=== PATIENT | male | born 1955 | race Caucasian/White ===

== ENCOUNTER 2019-04-15 08:13 | Inpatient (IN) | payer OTHER ==
[2019-04-15 09:19] LABS: ADD MAN DIFF? NO
[2019-04-15 09:22] LABS: BASOPHIL # 0.1 10^3/ul (0.0-0.1); BASOPHILS % 0.9 % (0.0-2.0); EOSINOPHILS # 0.2 10^3/ul (0.0-0.5); EOSINOPHILS % 1.9 % (0.0-7.0); HEMATOCRIT 42.7 % (42.0-52.0); LYMPHOCYTES # 1.5 10^3/ul (0.8-2.9); LYMPHOCYTES % 18.7 % (15.0-51.0); MEAN CORPUSCULAR HEMOGLOBIN 28.1 pg (29.0-33.0); MEAN CORPUSCULAR HGB CONC 32.8 g/dl (32.0-37.0); MEAN CORPUSCULAR VOLUME 85.7 fl (82.0-101.0); MEAN PLATELET VOLUME 9.6 fl (7.4-10.4); MONOCYTE # 0.6 10^3/ul (0.3-0.9); MONOCYTES % 7.6 % (0.0-11.0); NEUTROPHIL # 5.5 10^3/ul (1.6-7.5); NEUTROPHILS % 70.1 % (39.0-77.0); PLATELET COUNT 217 10^3/UL (140-415); RED BLOOD COUNT 4.98 10^6/ul (4.70-6.10); RED CELL DISTRIBUTION WIDTH 13.4 % (11.5-14.5)
[2019-04-15 09:22] LABS: WHITE BLOOD COUNT 7.9 10^3/ul (4.8-10.8)
[2019-04-15] MEDS: KETOROLAC 15 MG INJ IV (09:22)
[2019-04-15] MEDS: SOD CHLORIDE 0.9% 500 ML IV (09:22)
[2019-04-15] MEDS: PIPER-TAZO 3.375 GM IV (PMX) 100 ML IVPB (09:22)
[2019-04-15 09:40] LABS: ALANINE AMINOTRANSFERASE 30 IU/L (13-69); ALBUMIN 4.5 g/dl (3.3-4.9); ALKALINE PHOSPHATASE 75 IU/L (42-121); ANION GAP 12 (5-13); ASPARTATE AMINO TRANSFERASE 23 IU/L (15-46); BILIRUBIN,INDIRECT 0.4 mg/dl (0-1.1); BILIRUBIN,TOTAL 0.4 mg/dl (0.2-1.3); BLOOD UREA NITROGEN 36 mg/dl (7-20); CALCIUM 9.8 mg/dl (8.4-10.2); CARBON DIOXIDE 24 mmol/L (21-31); CHLORIDE 106 mmol/L (97-110); CREATININE 1.28 mg/dl (0.61-1.24); Estimated GFR 57 mL/min (>60); GLUCOSE 160 mg/dl (70-220); LIPASE 138 U/L (23-300); SODIUM 142 mmol/L (135-144); TOTAL PROTEIN 7.7 g/dl (6.1-8.1)
[2019-04-15 10:14] LABS: INR 1.89; PARTIAL THROMBOPLASTIN TIME 40.3 Sec (23.0-35.0); PROTIME 21.8 Sec (11.9-14.9); PT RATIO 1.7
[2019-04-15] MEDS: VANCOMYCIN 1 GM (PMX) 250 ML IVPB (10:30)
[2019-04-15] MEDS ORDERED: ONDANSETRON 4 MG INJ IV (16:30)
[2019-04-15] MEDS ORDERED: VANCOMYCIN IV PER PHARMACY XX (16:30)
[2019-04-15] MEDS ORDERED: DOCUSATE SODIUM 100 MG CAP PO (16:30)
[2019-04-15] MEDS ORDERED: NACL 0.9% 3 ML SYG IV (16:30)
[2019-04-15] MEDS ORDERED: ZOLPIDEM 5 MG TAB PO (16:30)
[2019-04-15] MEDS ORDERED: ACETAMINOPHEN 325 MG TAB PO (16:30)
[2019-04-15] MEDS ORDERED: PIPER-TAZO 3.375 GM IV (PMX) 100 ML IVPB (17:00)
[2019-04-15] MEDS: morphine 2 MG INJ IV (17:11)
[2019-04-15] MEDS: VANCOMYCIN 1 GM 250 ML IVPB (17:20)
[2019-04-15] MEDS: INSULIN ASPART [NOVOLOG] 3 ML PEN SC ×2 (18:05→20:21)
[2019-04-15] MEDS: RIVAROXABAN 20 MG TABLET PO (18:59)
[2019-04-15] MEDS: CEFTRIAXONE 1 GM/50 ML (PMX) 50 ML IVPB (20:06)
[2019-04-15] MEDS: SILVER SULFADIAZINE 1% 25 GM CR TOP (20:22)
[2019-04-15] MEDS: INSULIN GLARGINE [LANTus] (100 UNITS/ML) SYG SC (20:42)
[2019-04-15 21:45] LABS: C-REACTIVE PROTEIN 1.5 mg/dl (0.0-0.9)
[2019-04-15 22:10] LABS: PROCALCITONIN 0.07 ng/mL (0.00-0.10)
[2019-04-15 22:34] LABS: ERYTHROCYTE SEDIMENTATION RATE 32 mm/Hr (0-20)
[2019-04-16] MEDS: ACCU-CHEK XX (02:45)
[2019-04-16] MEDS: HYDROCHLOROTHIAZIDE 12.5 MG CAP PO (05:17)
[2019-04-16] MEDS: VANCOMYCIN 1 GM 250 ML IVPB ×2 (05:20→18:07)
[2019-04-16] MEDS: HYDROCODONE/APAP (5/325) TAB PO (05:30)
[2019-04-16] MEDS: morphine 2 MG INJ IV ×3 (05:35→22:14)
[2019-04-16 06:15] LABS: ADD MAN DIFF? NO
[2019-04-16 06:18] LABS: WHITE BLOOD COUNT 6.3 10^3/ul (4.8-10.8)
[2019-04-16 06:18] LABS: BASOPHIL # 0.1 10^3/ul (0.0-0.1); BASOPHILS % 0.8 % (0.0-2.0); EOSINOPHILS # 0.2 10^3/ul (0.0-0.5); EOSINOPHILS % 2.7 % (0.0-7.0); HEMATOCRIT 34.7 % (42.0-52.0); HEMOGLOBIN 11.3 g/dl (14.0-18.0); LYMPHOCYTES # 1.3 10^3/ul (0.8-2.9); LYMPHOCYTES % 20.8 % (15.0-51.0); MEAN CORPUSCULAR HEMOGLOBIN 28.5 pg (29.0-33.0); MEAN CORPUSCULAR HGB CONC 32.6 g/dl (32.0-37.0); MEAN CORPUSCULAR VOLUME 87.6 fl (82.0-101.0); MEAN PLATELET VOLUME 9.5 fl (7.4-10.4); MONOCYTE # 0.7 10^3/ul (0.3-0.9); MONOCYTES % 11.4 % (0.0-11.0); NEUTROPHILS % 63.3 % (39.0-77.0); PLATELET COUNT 173 10^3/UL (140-415); RED BLOOD COUNT 3.96 10^6/ul (4.70-6.10); RED CELL DISTRIBUTION WIDTH 13.2 % (11.5-14.5)
[2019-04-16 06:29] LABS: HEMOGLOBIN A1C 6.6 % (0-5.9)
[2019-04-16 06:41] LABS: ANION GAP 4 (5-13); BLOOD UREA NITROGEN 26 mg/dl (7-20); CALCIUM 8.6 mg/dl (8.4-10.2); CARBON DIOXIDE 26 mmol/L (21-31); CHLORIDE 111 mmol/L (97-110); CREATININE 1.12 mg/dl (0.61-1.24); Estimated GFR > 60 mL/min (>60); GLUCOSE 122 mg/dl (70-220); PHOSPHORUS 3.7 mg/dl (2.5-4.9); SODIUM 141 mmol/L (135-144)
[2019-04-16] MEDS: INSULIN ASPART [NOVOLOG] 3 ML PEN SC ×4 (07:50→20:43)
[2019-04-16] MEDS ORDERED: DAKINS 0.0125%(1/40) 473 ML SOLUTION TP (09:00)
[2019-04-16] MEDS: DAKINS 0.0125%(1/40) 473 ML SOLUTION TP (16:58)
[2019-04-16] MEDS: SILVER SULFADIAZINE 1% 25 GM CR TOP ×3 (16:58→20:44)
[2019-04-16] MEDS: CEFTRIAXONE 1 GM/50 ML (PMX) 50 ML IVPB (18:06)
[2019-04-16] MEDS: RIVAROXABAN 20 MG TABLET PO (18:07)
[2019-04-16] MEDS: INSULIN GLARGINE [LANTus] (100 UNITS/ML) SYG SC (20:42)
[2019-04-17] MEDS: ACCU-CHEK XX (02:12)
[2019-04-17 04:32] LABS: BLOOD UREA NITROGEN 23 mg/dl (7-20)
[2019-04-17 04:32] LABS: CREATININE 1.15 mg/dl (0.61-1.24)
[2019-04-17] MEDS: morphine 2 MG INJ IV ×3 (04:39→19:01)
[2019-04-17] MEDS: VANCOMYCIN 1 GM 250 ML IVPB ×2 (05:01→17:37)
[2019-04-17 05:13] LABS: VANCOMYCIN,TROUGH 12.1 ug/ml (10.0-20.0)
[2019-04-17] MEDS: HYDROCHLOROTHIAZIDE 12.5 MG CAP PO (06:00)
[2019-04-17] MEDS: INSULIN ASPART [NOVOLOG] 3 ML PEN SC ×4 (07:51→21:00)
[2019-04-17] MEDS: SILVER SULFADIAZINE 1% 25 GM CR TOP ×3 (07:55→21:15)
[2019-04-17] MEDS: DAKINS 0.0125%(1/40) 473 ML SOLUTION TP (07:56)
[2019-04-17] MEDS: RIVAROXABAN 20 MG TABLET PO (17:37)
[2019-04-17] MEDS: CEFTRIAXONE 1 GM/50 ML (PMX) 50 ML IVPB (17:37)
[2019-04-17] MEDS: INSULIN GLARGINE [LANTus] (100 UNITS/ML) SYG SC (19:59)
[2019-04-18] MEDS: ACCU-CHEK XX (02:00)
[2019-04-18] MEDS: VANCOMYCIN 1 GM 250 ML IVPB ×2 (05:30→17:24)
[2019-04-18] MEDS: HYDROCHLOROTHIAZIDE 12.5 MG CAP PO (05:37)
[2019-04-18] MEDS: morphine 2 MG INJ IV ×3 (05:37→21:40)
[2019-04-18] MEDS: INSULIN ASPART [NOVOLOG] 3 ML PEN SC ×4 (08:00→21:00)
[2019-04-18] MEDS: DAKINS 0.0125%(1/40) 473 ML SOLUTION TP (08:56)
[2019-04-18] MEDS: SILVER SULFADIAZINE 1% 25 GM CR TOP ×3 (08:56→21:44)
[2019-04-18 11:18] LABS: ADD MAN DIFF? NO
[2019-04-18 11:25] LABS: WHITE BLOOD COUNT 6.1 10^3/ul (4.8-10.8)
[2019-04-18 11:25] LABS: BASOPHIL # 0.1 10^3/ul (0.0-0.1); BASOPHILS % 1.3 % (0.0-2.0); EOSINOPHILS # 0.2 10^3/ul (0.0-0.5); EOSINOPHILS % 2.8 % (0.0-7.0); HEMATOCRIT 39.6 % (42.0-52.0); LYMPHOCYTES # 1.7 10^3/ul (0.8-2.9); LYMPHOCYTES % 28.2 % (15.0-51.0); MEAN CORPUSCULAR HEMOGLOBIN 28.4 pg (29.0-33.0); MEAN CORPUSCULAR HGB CONC 32.8 g/dl (32.0-37.0); MEAN CORPUSCULAR VOLUME 86.7 fl (82.0-101.0); MEAN PLATELET VOLUME 9.7 fl (7.4-10.4); MONOCYTE # 0.5 10^3/ul (0.3-0.9); MONOCYTES % 8.6 % (0.0-11.0); NEUTROPHIL # 3.5 10^3/ul (1.6-7.5); NEUTROPHILS % 57.9 % (39.0-77.0); PLATELET COUNT 204 10^3/UL (140-415); RED BLOOD COUNT 4.57 10^6/ul (4.70-6.10); RED CELL DISTRIBUTION WIDTH 13.3 % (11.5-14.5)
[2019-04-18 11:37] LABS: ANION GAP 8 (5-13); BLOOD UREA NITROGEN 24 mg/dl (7-20); CALCIUM 9.7 mg/dl (8.4-10.2); CARBON DIOXIDE 28 mmol/L (21-31); CHLORIDE 105 mmol/L (97-110); CREATININE 1.16 mg/dl (0.61-1.24); Estimated GFR > 60 mL/min (>60); GLUCOSE 138 mg/dl (70-220); POTASSIUM 3.9 mmol/L (3.5-5.1); SODIUM 141 mmol/L (135-144)
[2019-04-18] MEDS ORDERED: ERTAPENEM SODIUM 0.5 GM in SOD CHLORIDE 0.9% 100 ML IVPB (16:00)
[2019-04-18] MEDS: ERTAPENEM SODIUM 1 GM in SOD CHLORIDE 0.9% 100 ML IVPB (16:02)
[2019-04-18] MEDS: RIVAROXABAN 20 MG TABLET PO (17:25)
[2019-04-18] MEDS: INSULIN GLARGINE [LANTus] (100 UNITS/ML) SYG SC (20:22)
[2019-04-19] MEDS: ACCU-CHEK XX (02:00)
[2019-04-19] MEDS: HYDROCHLOROTHIAZIDE 12.5 MG CAP PO (05:25)
[2019-04-19] MEDS: VANCOMYCIN 1 GM 250 ML IVPB ×2 (05:54→17:29)
[2019-04-19] MEDS: morphine 2 MG INJ IV ×2 (06:58→18:26)
[2019-04-19] MEDS: INSULIN ASPART [NOVOLOG] 3 ML PEN SC ×4 (08:00→20:47)
[2019-04-19] MEDS: SILVER SULFADIAZINE 1% 25 GM CR TOP ×3 (09:00→20:52)
[2019-04-19] MEDS: DAKINS 0.0125%(1/40) 473 ML SOLUTION TP (09:00)
[2019-04-19] MEDS: ERTAPENEM SODIUM 1 GM in SOD CHLORIDE 0.9% 100 ML IVPB (15:57)
[2019-04-19] MEDS: RIVAROXABAN 20 MG TABLET PO (17:28)
[2019-04-19] MEDS: INSULIN GLARGINE [LANTus] (100 UNITS/ML) SYG SC (20:46)
[2019-04-20] MEDS: ACCU-CHEK XX (01:58)
[2019-04-20] MEDS: VANCOMYCIN 1 GM 250 ML IVPB ×2 (05:04→17:25)
[2019-04-20] MEDS: HYDROCHLOROTHIAZIDE 12.5 MG CAP PO (06:02)
[2019-04-20 06:12] LABS: ADD MAN DIFF? NO
[2019-04-20 06:18] LABS: BASOPHIL # 0.1 10^3/ul (0.0-0.1); EOSINOPHILS # 0.2 10^3/ul (0.0-0.5); EOSINOPHILS % 2.5 % (0.0-7.0); HEMATOCRIT 43.9 % (42.0-52.0); HEMOGLOBIN 14.5 g/dl (14.0-18.0); LYMPHOCYTES # 2.2 10^3/ul (0.8-2.9); LYMPHOCYTES % 27.3 % (15.0-51.0); MEAN CORPUSCULAR HEMOGLOBIN 28.6 pg (29.0-33.0); MEAN CORPUSCULAR VOLUME 86.6 fl (82.0-101.0); MEAN PLATELET VOLUME 9.7 fl (7.4-10.4); MONOCYTE # 0.7 10^3/ul (0.3-0.9); MONOCYTES % 8.6 % (0.0-11.0); NEUTROPHIL # 4.7 10^3/ul (1.6-7.5); NEUTROPHILS % 59.2 % (39.0-77.0); PLATELET COUNT 237 10^3/UL (140-415); RED BLOOD COUNT 5.07 10^6/ul (4.70-6.10); RED CELL DISTRIBUTION WIDTH 13.2 % (11.5-14.5)
[2019-04-20 06:18] LABS: WHITE BLOOD COUNT 7.9 10^3/ul (4.8-10.8)
[2019-04-20 07:51] LABS: ANION GAP 8 (5-13); BLOOD UREA NITROGEN 34 mg/dl (7-20); CALCIUM 9.9 mg/dl (8.4-10.2); CARBON DIOXIDE 25 mmol/L (21-31); CHLORIDE 108 mmol/L (97-110); CREATININE 1.19 mg/dl (0.61-1.24); Estimated GFR > 60 mL/min (>60); GLUCOSE 133 mg/dl (70-220); POTASSIUM 4.3 mmol/L (3.5-5.1); SODIUM 141 mmol/L (135-144)
[2019-04-20] MEDS: INSULIN ASPART [NOVOLOG] 3 ML PEN SC ×4 (08:00→20:44)
[2019-04-20] MEDS: morphine 2 MG INJ IV ×3 (08:25→20:37)
[2019-04-20] MEDS: SILVER SULFADIAZINE 1% 25 GM CR TOP ×3 (13:00→20:44)
[2019-04-20] MEDS: DAKINS 0.0125%(1/40) 473 ML SOLUTION TP (13:42)
[2019-04-20] MEDS: ERTAPENEM SODIUM 1 GM in SOD CHLORIDE 0.9% 100 ML IVPB (15:54)
[2019-04-20] MEDS: RIVAROXABAN 20 MG TABLET PO (17:24)
[2019-04-20] MEDS: INSULIN GLARGINE [LANTus] (100 UNITS/ML) SYG SC (20:44)
[2019-04-21] MEDS: ACCU-CHEK XX (02:00)
[2019-04-21] MEDS: VANCOMYCIN 1 GM 250 ML IVPB ×2 (04:33→17:00)
[2019-04-21 05:43] LABS: ADD MAN DIFF? NO
[2019-04-21 05:57] LABS: WHITE BLOOD COUNT 6.8 10^3/ul (4.8-10.8)
[2019-04-21 05:57] LABS: BASOPHIL # 0.1 10^3/ul (0.0-0.1); BASOPHILS % 1.3 % (0.0-2.0); EOSINOPHILS # 0.2 10^3/ul (0.0-0.5); EOSINOPHILS % 3.2 % (0.0-7.0); HEMATOCRIT 43.6 % (42.0-52.0); HEMOGLOBIN 14.3 g/dl (14.0-18.0); LYMPHOCYTES # 2.2 10^3/ul (0.8-2.9); LYMPHOCYTES % 32.9 % (15.0-51.0); MEAN CORPUSCULAR HEMOGLOBIN 28.5 pg (29.0-33.0); MEAN CORPUSCULAR HGB CONC 32.8 g/dl (32.0-37.0); MEAN CORPUSCULAR VOLUME 86.9 fl (82.0-101.0); MEAN PLATELET VOLUME 9.7 fl (7.4-10.4); MONOCYTE # 0.6 10^3/ul (0.3-0.9); NEUTROPHIL # 3.5 10^3/ul (1.6-7.5); PLATELET COUNT 213 10^3/UL (140-415); RED BLOOD COUNT 5.02 10^6/ul (4.70-6.10); RED CELL DISTRIBUTION WIDTH 13.3 % (11.5-14.5)
[2019-04-21] MEDS: HYDROCHLOROTHIAZIDE 12.5 MG CAP PO (06:02)
[2019-04-21 06:27] LABS: ANION GAP 9 (5-13); BLOOD UREA NITROGEN 33 mg/dl (7-20); CALCIUM 9.4 mg/dl (8.4-10.2); CARBON DIOXIDE 24 mmol/L (21-31); CHLORIDE 108 mmol/L (97-110); CREATININE 1.21 mg/dl (0.61-1.24); Estimated GFR > 60 mL/min (>60); GLUCOSE 128 mg/dl (70-220); SODIUM 141 mmol/L (135-144)
[2019-04-21] MEDS: INSULIN ASPART [NOVOLOG] 3 ML PEN SC ×3 (08:00→17:32)
[2019-04-21] MEDS: SILVER SULFADIAZINE 1% 25 GM CR TOP ×2 (09:00→13:00)
[2019-04-21] MEDS: DAKINS 0.0125%(1/40) 473 ML SOLUTION TP (09:00)
[2019-04-21] MEDS: morphine 2 MG INJ IV (12:46)
[2019-04-21] MEDS: ERTAPENEM SODIUM 1 GM in SOD CHLORIDE 0.9% 100 ML IVPB (15:59)
[2019-04-21] MEDS: RIVAROXABAN 20 MG TABLET PO (17:32)
== END 2019-04-21 18:27 | disposition home or self-care (01) | DRG 300 ==
LOC: E/R 08:13 → PP2 15:32
DX: I87.2 Venous insufficiency (chronic) (peripheral) (principal); L03.115 Cellulitis of right lower limb; E11.42 Type 2 diabetes mellitus with diabetic polyneuropathy; Z59.0 Homelessness; E66.9 Obesity, unspecified; Z68.32 Body mass index [BMI] 32.0-32.9, adult; I10 Essential (primary) hypertension; I89.0 Lymphedema, not elsewhere classified; Z86.718 Personal history of other venous thrombosis and embolism; Z79.01 Long term (current) use of anticoagulants; Z79.84 Long term (current) use of oral hypoglycemic drugs
CPT/HCPCS: 36415; 71045; 73590; 80048; 80053; 80202; 82565; 82962; 83036; 83690; 83735; 84100; 84145; 84520; 85025; 85610; 85651; 85730; 86140; 87070; 87081; 93971; 96365; 96375; 99285-25

== ENCOUNTER 2019-05-09 06:38 | Inpatient (IN) | payer OTHER ==
[2019-05-09] MEDS: ONDANSETRON 4 MG INJ IV ×2 (07:22→08:23)
[2019-05-09] MEDS: morphine 4 MG/ML VIAL IV (07:22)
[2019-05-09] MEDS: SOD CHLORIDE 0.9% 500 ML IV (07:23)
[2019-05-09 07:40] LABS: ADD MAN DIFF? NO
[2019-05-09] MEDS: PIPER-TAZO 3.375 GM IV (PMX) 100 ML IVPB ×2 (07:46→17:19)
[2019-05-09 07:47] LABS: BASOPHILS % 0.7 % (0.0-2.0); EOSINOPHILS # 0.2 10^3/ul (0.0-0.5); EOSINOPHILS % 2.8 % (0.0-7.0); HEMATOCRIT 38.9 % (42.0-52.0); HEMOGLOBIN 12.4 g/dl (14.0-18.0); LYMPHOCYTES # 1.5 10^3/ul (0.8-2.9); LYMPHOCYTES % 27.2 % (15.0-51.0); MEAN CORPUSCULAR HEMOGLOBIN 27.9 pg (29.0-33.0); MEAN CORPUSCULAR HGB CONC 31.9 g/dl (32.0-37.0); MEAN CORPUSCULAR VOLUME 87.4 fl (82.0-101.0); MEAN PLATELET VOLUME 9.1 fl (7.4-10.4); MONOCYTE # 0.6 10^3/ul (0.3-0.9); MONOCYTES % 10.8 % (0.0-11.0); NEUTROPHIL # 3.1 10^3/ul (1.6-7.5); NEUTROPHILS % 57.2 % (39.0-77.0); PLATELET COUNT 176 10^3/UL (140-415); RED BLOOD COUNT 4.45 10^6/ul (4.70-6.10); RED CELL DISTRIBUTION WIDTH 13.5 % (11.5-14.5)
[2019-05-09 07:47] LABS: WHITE BLOOD COUNT 5.4 10^3/ul (4.8-10.8)
[2019-05-09 08:01] LABS: ALANINE AMINOTRANSFERASE 23 IU/L (13-69); ALBUMIN 3.8 g/dl (3.3-4.9); ALBUMIN/GLOBULIN RATIO 1.18; ALKALINE PHOSPHATASE 64 IU/L (42-121); ANION GAP 7 (5-13); ASPARTATE AMINO TRANSFERASE 20 IU/L (15-46); BILIRUBIN,INDIRECT 0.4 mg/dl (0-1.1); BILIRUBIN,TOTAL 0.4 mg/dl (0.2-1.3); BLOOD UREA NITROGEN 22 mg/dl (7-20); CALCIUM 8.8 mg/dl (8.4-10.2); CARBON DIOXIDE 27 mmol/L (21-31); CHLORIDE 109 mmol/L (97-110); CREATININE 1.24 mg/dl (0.61-1.24); Estimated GFR 59 mL/min (>60); GLUCOSE 114 mg/dl (70-220); SODIUM 143 mmol/L (135-144)
[2019-05-09 08:03] LABS: INR 1.57; PARTIAL THROMBOPLASTIN TIME 36.4 Sec (23.0-35.0); PROTIME 18.9 Sec (11.9-14.9); PT RATIO 1.5
[2019-05-09 08:13] LABS: TROPONIN-I < 0.012 ng/ml (0.000-0.120)
[2019-05-09] MEDS: VANCOMYCIN 1 GM (PMX) 250 ML IVPB (08:23)
[2019-05-09] MEDS: HYDROmorphONE 1 MG/ML SYG IV (08:23)
[2019-05-09 09:19] LABS: ADD UMIC YES; UR ASCORBIC ACID NEGATIVE (NEGATIVE); UR BILIRUBIN (Dip) NEGATIVE (NEGATIVE); UR BLOOD (Dip) 1+ mg/dL (NEGATIVE); UR CLARITY CLEAR (CLEAR); UR COLOR YELLOW (YELLOW); UR GLUCOSE (Dip) NEGATIVE (NEGATIVE); UR KETONES (Dip) NEGATIVE (NEGATIVE); UR LEUKOCYTE ESTERASE (Dip) NEGATIVE Leu/ul (NEGATIVE); UR NITRITE (Dip) NEGATIVE (NEGATIVE); UR RBC 2 /HPF (0-5); UR SPECIFIC GRAVITY (Dip) 1.015 (1.003-1.030); UR TOTAL PROTEIN (Dip) NEGATIVE (NEGATIVE); UR UROBILINOGEN (Dip) NEGATIVE (NEGATIVE); UR WBC 0 /HPF (0-5)
[2019-05-09] MEDS ORDERED: ONDANSETRON 4 MG INJ IV ×2 (10:00→11:30)
[2019-05-09] MEDS ORDERED: ACETAMINOPHEN 325 MG TAB PO (10:00)
[2019-05-09] MEDS ORDERED: HYDROCODONE/APAP (5/325) TAB PO (11:30)
[2019-05-09] MEDS ORDERED: NACL 0.9% 3 ML SYG IV (11:30)
[2019-05-09] MEDS ORDERED: GLUCOSE GEL 15 GRAM TUBE PO ×2 (12:00)
[2019-05-09] MEDS ORDERED: GLUCOSE GEL 15 GRAM TUBE BUCCAL (12:00)
[2019-05-09] MEDS ORDERED: GLUCAGON 1 MG INJ IM (12:00)
[2019-05-09] MEDS ORDERED: DEXTROSE 50% 50 ML SYRINGE IV ×2 (12:00)
[2019-05-09] MEDS ORDERED: VANCOMYCIN IV PER PHARMACY XX (12:30)
[2019-05-09 13:25] LABS: IRON 45 ug/dl (35-150)
[2019-05-09 13:29] LABS: C-REACTIVE PROTEIN 1.6 mg/dl (0.0-0.9)
[2019-05-09] MEDS ORDERED: VANCOMYCIN 1 GM 250 ML IVPB (13:30)
[2019-05-09 13:32] LABS: AMPHETAMINE/METHAMPHETAMINE Negative (NEGATIVE); BARBITURATES Negative (NEGATIVE); BENZODIAZEPINES Negative (NEGATIVE); CANNABINOIDS Negative (NEGATIVE); COCAINE Negative (NEGATIVE); OPIATES Positive (NEGATIVE)
[2019-05-09 13:35] LABS: B-TYPE NATRIURETIC PEPTIDE 128 PG/ML (0-125)
[2019-05-09 13:35] LABS: % IRON SATURATION 14 % SAT (22-52); TOTAL IRON BINDING CAPACITY 313 ug/dl (241-421)
[2019-05-09 13:57] LABS: HEMOGLOBIN A1C 6.5 % (0-5.9)
[2019-05-09 14:01] LABS: FERRITIN 63.1 ng/ml (11.1-264.0)
[2019-05-09 14:02] LABS: ERYTHROCYTE SEDIMENTATION RATE 20 mm/Hr (0-20)
[2019-05-09] MEDS: VANCOMYCIN 1 GM 250 ML IVPB (14:24)
[2019-05-09] MEDS: RIVAROXABAN 20 MG TABLET PO (17:20)
[2019-05-09] MEDS: metFORMIN 500 MG TAB PO (17:20)
[2019-05-09] MEDS: INSULIN ASPART [NOVOLOG] 3 ML PEN SC ×2 (17:21→21:00)
[2019-05-10] MEDS: PIPER-TAZO 3.375 GM IV (PMX) 100 ML IVPB ×3 (00:24→12:56)
[2019-05-10] MEDS: VANCOMYCIN 1 GM 250 ML IVPB ×2 (01:26→16:42)
[2019-05-10 07:02] LABS: ADD MAN DIFF? NO
[2019-05-10 07:05] LABS: WHITE BLOOD COUNT 6.6 10^3/ul (4.8-10.8)
[2019-05-10 07:06] LABS: BASOPHILS % 0.5 % (0.0-2.0); EOSINOPHILS # 0.2 10^3/ul (0.0-0.5); EOSINOPHILS % 2.7 % (0.0-7.0); HEMATOCRIT 36.3 % (42.0-52.0); HEMOGLOBIN 11.5 g/dl (14.0-18.0); LYMPHOCYTES # 1.5 10^3/ul (0.8-2.9); LYMPHOCYTES % 23.2 % (15.0-51.0); MEAN CORPUSCULAR HEMOGLOBIN 28.5 pg (29.0-33.0); MEAN CORPUSCULAR HGB CONC 31.7 g/dl (32.0-37.0); MEAN CORPUSCULAR VOLUME 90.1 fl (82.0-101.0); MEAN PLATELET VOLUME 9.5 fl (7.4-10.4); MONOCYTE # 0.9 10^3/ul (0.3-0.9); MONOCYTES % 13.3 % (0.0-11.0); NEUTROPHIL # 3.9 10^3/ul (1.6-7.5); NEUTROPHILS % 59.5 % (39.0-77.0); PLATELET COUNT 184 10^3/UL (140-415); RED BLOOD COUNT 4.03 10^6/ul (4.70-6.10); RED CELL DISTRIBUTION WIDTH 13.5 % (11.5-14.5)
[2019-05-10 07:31] LABS: PHOSPHORUS 4.1 mg/dl (2.5-4.9)
[2019-05-10 07:31] LABS: CHOL/HDL RATIO 5.9 RATIO; CHOLESTEROL 166 mg/dl (100-200); HDL CHOLESTEROL 28 mg/dl (30-78); LDL CHOLESTEROL,CALCULATED 82 mg/dl; MAGNESIUM 2.1 mg/dl (1.7-2.5); TRIGLYCERIDES 280 mg/dl (0-149)
[2019-05-10 07:38] LABS: ALANINE AMINOTRANSFERASE 29 IU/L (13-69); ALBUMIN 3.3 g/dl (3.3-4.9); ALBUMIN/GLOBULIN RATIO 1.13; ALKALINE PHOSPHATASE 53 IU/L (42-121); ANION GAP 7 (5-13); ASPARTATE AMINO TRANSFERASE 17 IU/L (15-46); BILIRUBIN,INDIRECT 0.3 mg/dl (0-1.1); BILIRUBIN,TOTAL 0.3 mg/dl (0.2-1.3); BLOOD UREA NITROGEN 18 mg/dl (7-20); C-REACTIVE PROTEIN 1.6 mg/dl (0.0-0.9); CALCIUM 8.6 mg/dl (8.4-10.2); CARBON DIOXIDE 30 mmol/L (21-31); CHLORIDE 107 mmol/L (97-110); CREATININE 1.25 mg/dl (0.61-1.24); Estimated GFR 58 mL/min (>60); GLUCOSE 121 mg/dl (70-220); POTASSIUM 4.2 mmol/L (3.5-5.1); SODIUM 144 mmol/L (135-144); TOTAL PROTEIN 6.2 g/dl (6.1-8.1)
[2019-05-10] MEDS: INSULIN ASPART [NOVOLOG] 3 ML PEN SC ×4 (08:00→20:34)
[2019-05-10] MEDS: metFORMIN 500 MG TAB PO ×2 (08:06→17:47)
[2019-05-10] MEDS: HYDROCHLOROTHIAZIDE 12.5 MG CAP PO (08:07)
[2019-05-10 08:37] LABS: ERYTHROCYTE SEDIMENTATION RATE 20 mm/Hr (0-20)
[2019-05-10] MEDS ORDERED: ENOXAPARIN 40 MG/0.4 ML SYG SC (09:00)
[2019-05-10] MEDS: morphine 2 MG INJ IV ×3 (11:15→16:41)
[2019-05-10] MEDS: FLUOCINONIDE 0.05% 15 GM CR TOP ×2 (11:19→20:35)
[2019-05-10] MEDS: DAKINS 0.0125%(1/40) 473 ML SOLUTION TP ×2 (16:42→20:35)
[2019-05-10] MEDS: RIVAROXABAN 20 MG TABLET PO (17:46)
[2019-05-10] MEDS: CEFEPIME 1GM/50 ML (PMX) 50 ML IVPB (20:33)
[2019-05-10] MEDS: morphine 4 MG/ML VIAL IV (20:43)
[2019-05-11 01:38] LABS: VANCOMYCIN,TROUGH 11.9 ug/ml (10.0-20.0)
[2019-05-11] MEDS: VANCOMYCIN 1 GM 250 ML IVPB ×2 (02:03→14:05)
[2019-05-11] MEDS: morphine 4 MG/ML VIAL IV ×3 (06:00→21:44)
[2019-05-11 06:02] LABS: ADD MAN DIFF? NO
[2019-05-11 06:12] LABS: WHITE BLOOD COUNT 5.6 10^3/ul (4.8-10.8)
[2019-05-11 06:12] LABS: BASOPHILS % 0.7 % (0.0-2.0); EOSINOPHILS # 0.1 10^3/ul (0.0-0.5); EOSINOPHILS % 2.5 % (0.0-7.0); HEMATOCRIT 36.7 % (42.0-52.0); HEMOGLOBIN 11.7 g/dl (14.0-18.0); LYMPHOCYTES # 1.3 10^3/ul (0.8-2.9); MEAN CORPUSCULAR HEMOGLOBIN 28.4 pg (29.0-33.0); MEAN CORPUSCULAR HGB CONC 31.9 g/dl (32.0-37.0); MEAN CORPUSCULAR VOLUME 89.1 fl (82.0-101.0); MEAN PLATELET VOLUME 9.3 fl (7.4-10.4); MONOCYTE # 0.6 10^3/ul (0.3-0.9); MONOCYTES % 11.1 % (0.0-11.0); NEUTROPHIL # 3.5 10^3/ul (1.6-7.5); NEUTROPHILS % 61.8 % (39.0-77.0); PLATELET COUNT 173 10^3/UL (140-415); RED BLOOD COUNT 4.12 10^6/ul (4.70-6.10); RED CELL DISTRIBUTION WIDTH 13.3 % (11.5-14.5)
[2019-05-11] MEDS: DAKINS 0.0125%(1/40) 473 ML SOLUTION TP ×3 (06:14→21:00)
[2019-05-11] MEDS: FLUOCINONIDE 0.05% 15 GM CR TOP ×3 (06:15→21:00)
[2019-05-11 06:33] LABS: MAGNESIUM 1.9 mg/dl (1.7-2.5)
[2019-05-11 06:43] LABS: ANION GAP 4 (5-13); BLOOD UREA NITROGEN 17 mg/dl (7-20); CALCIUM 9.1 mg/dl (8.4-10.2); CARBON DIOXIDE 29 mmol/L (21-31); CHLORIDE 108 mmol/L (97-110); CREATININE 1.22 mg/dl (0.61-1.24); Estimated GFR 60 mL/min (>60); GLUCOSE 124 mg/dl (70-220); SODIUM 141 mmol/L (135-144)
[2019-05-11] MEDS: INSULIN ASPART [NOVOLOG] 3 ML PEN SC ×4 (08:00→21:00)
[2019-05-11] MEDS: metFORMIN 500 MG TAB PO ×2 (08:30→17:29)
[2019-05-11] MEDS: CEFEPIME 1GM/50 ML (PMX) 50 ML IVPB ×2 (08:32→21:44)
[2019-05-11] MEDS: HYDROCHLOROTHIAZIDE 12.5 MG CAP PO (08:33)
[2019-05-11] MEDS: RIVAROXABAN 20 MG TABLET PO (17:29)
[2019-05-12] MEDS: VANCOMYCIN 1 GM 250 ML IVPB (02:19)
[2019-05-12] MEDS: INSULIN ASPART [NOVOLOG] 3 ML PEN SC ×4 (08:00→20:07)
[2019-05-12] MEDS: FLUOCINONIDE 0.05% 15 GM CR TOP ×2 (09:00→20:08)
[2019-05-12] MEDS: DAKINS 0.0125%(1/40) 473 ML SOLUTION TP ×2 (09:00→20:08)
[2019-05-12] MEDS: CEFEPIME 1GM/50 ML (PMX) 50 ML IVPB (10:20)
[2019-05-12] MEDS: morphine 4 MG/ML VIAL IV ×2 (10:21→20:09)
[2019-05-12] MEDS: HYDROCHLOROTHIAZIDE 12.5 MG CAP PO (10:22)
[2019-05-12] MEDS: metFORMIN 500 MG TAB PO ×2 (10:29→17:19)
[2019-05-12] MEDS: RIVAROXABAN 20 MG TABLET PO (17:20)
[2019-05-12] MEDS: DOXYCYCLINE 100 MG TAB PO (20:07)
[2019-05-13] MEDS: morphine 4 MG/ML VIAL IV ×2 (05:24→19:41)
[2019-05-13 05:52] LABS: ADD MAN DIFF? NO
[2019-05-13 06:03] LABS: WHITE BLOOD COUNT 6.3 10^3/ul (4.8-10.8)
[2019-05-13 06:03] LABS: BASOPHIL # 0.1 10^3/ul (0.0-0.1); BASOPHILS % 0.8 % (0.0-2.0); EOSINOPHILS # 0.2 10^3/ul (0.0-0.5); EOSINOPHILS % 2.9 % (0.0-7.0); HEMATOCRIT 37.9 % (42.0-52.0); HEMOGLOBIN 12.3 g/dl (14.0-18.0); LYMPHOCYTES # 1.5 10^3/ul (0.8-2.9); LYMPHOCYTES % 24.2 % (15.0-51.0); MEAN CORPUSCULAR HEMOGLOBIN 28.4 pg (29.0-33.0); MEAN CORPUSCULAR HGB CONC 32.5 g/dl (32.0-37.0); MEAN CORPUSCULAR VOLUME 87.5 fl (82.0-101.0); MEAN PLATELET VOLUME 9.6 fl (7.4-10.4); MONOCYTE # 0.6 10^3/ul (0.3-0.9); MONOCYTES % 9.5 % (0.0-11.0); NEUTROPHIL # 3.9 10^3/ul (1.6-7.5); NEUTROPHILS % 61.8 % (39.0-77.0); PLATELET COUNT 192 10^3/UL (140-415); RED BLOOD COUNT 4.33 10^6/ul (4.70-6.10); RED CELL DISTRIBUTION WIDTH 13.2 % (11.5-14.5)
[2019-05-13 06:20] LABS: ANION GAP 11 (5-13); BLOOD UREA NITROGEN 20 mg/dl (7-20); CALCIUM 9.1 mg/dl (8.4-10.2); CARBON DIOXIDE 28 mmol/L (21-31); CHLORIDE 105 mmol/L (97-110); CREATININE 1.24 mg/dl (0.61-1.24); Estimated GFR 59 mL/min (>60); GLUCOSE 131 mg/dl (70-220); POTASSIUM 3.9 mmol/L (3.5-5.1); SODIUM 144 mmol/L (135-144)
[2019-05-13] MEDS: ACETAMINOPHEN 325 MG TAB PO (06:22)
[2019-05-13] MEDS: INSULIN ASPART [NOVOLOG] 3 ML PEN SC ×4 (08:00→21:00)
[2019-05-13] MEDS: DAKINS 0.0125%(1/40) 473 ML SOLUTION TP ×2 (08:22→21:00)
[2019-05-13] MEDS: FLUOCINONIDE 0.05% 15 GM CR TOP ×2 (08:22→21:00)
[2019-05-13] MEDS: HYDROCHLOROTHIAZIDE 12.5 MG CAP PO (08:23)
[2019-05-13] MEDS: DOXYCYCLINE 100 MG TAB PO ×2 (08:27→21:10)
[2019-05-13] MEDS: metFORMIN 500 MG TAB PO ×2 (08:28→17:24)
[2019-05-13] MEDS: RIVAROXABAN 20 MG TABLET PO (17:24)
[2019-05-14 05:33] LABS: ADD MAN DIFF? NO
[2019-05-14 05:39] LABS: BASOPHIL # 0.1 10^3/ul (0.0-0.1); BASOPHILS % 0.9 % (0.0-2.0); EOSINOPHILS # 0.2 10^3/ul (0.0-0.5); EOSINOPHILS % 2.8 % (0.0-7.0); HEMATOCRIT 37.8 % (42.0-52.0); HEMOGLOBIN 12.2 g/dl (14.0-18.0); LYMPHOCYTES # 1.8 10^3/ul (0.8-2.9); LYMPHOCYTES % 28.4 % (15.0-51.0); MEAN CORPUSCULAR HEMOGLOBIN 28.4 pg (29.0-33.0); MEAN CORPUSCULAR HGB CONC 32.3 g/dl (32.0-37.0); MEAN CORPUSCULAR VOLUME 87.9 fl (82.0-101.0); MEAN PLATELET VOLUME 9.2 fl (7.4-10.4); MONOCYTE # 0.8 10^3/ul (0.3-0.9); MONOCYTES % 11.6 % (0.0-11.0); NEUTROPHIL # 3.6 10^3/ul (1.6-7.5); NEUTROPHILS % 55.4 % (39.0-77.0); PLATELET COUNT 198 10^3/UL (140-415); RED CELL DISTRIBUTION WIDTH 13.2 % (11.5-14.5)
[2019-05-14 05:39] LABS: WHITE BLOOD COUNT 6.5 10^3/ul (4.8-10.8)
[2019-05-14 06:02] LABS: ANION GAP 7 (5-13); BLOOD UREA NITROGEN 25 mg/dl (7-20); CALCIUM 9.1 mg/dl (8.4-10.2); CARBON DIOXIDE 29 mmol/L (21-31); CHLORIDE 104 mmol/L (97-110); CREATININE 1.15 mg/dl (0.61-1.24); Estimated GFR > 60 mL/min (>60); GLUCOSE 120 mg/dl (70-220); POTASSIUM 4.3 mmol/L (3.5-5.1); SODIUM 140 mmol/L (135-144)
[2019-05-14] MEDS: INSULIN ASPART [NOVOLOG] 3 ML PEN SC ×4 (08:00→21:00)
[2019-05-14] MEDS: HYDROCHLOROTHIAZIDE 12.5 MG CAP PO (08:39)
[2019-05-14] MEDS: metFORMIN 500 MG TAB PO ×2 (08:39→17:10)
[2019-05-14] MEDS: DOXYCYCLINE 100 MG TAB PO ×2 (08:39→21:10)
[2019-05-14] MEDS: DAKINS 0.0125%(1/40) 473 ML SOLUTION TP ×2 (08:41→21:00)
[2019-05-14] MEDS: FLUOCINONIDE 0.05% 15 GM CR TOP ×2 (08:42→21:00)
[2019-05-14] MEDS: DIPHENHYDRAMINE 50 MG INJ IV (11:28)
[2019-05-14] MEDS: TRIAMCINOLONE ACET 0.1% 15 GM CR TOP ×2 (16:52→21:12)
[2019-05-14] MEDS: LORATADINE 10 MG TAB PO (16:52)
[2019-05-14] MEDS: RIVAROXABAN 20 MG TABLET PO (17:10)
[2019-05-14] MEDS: morphine 4 MG/ML VIAL IV (21:11)
[2019-05-15 05:31] LABS: ADD MAN DIFF? NO
[2019-05-15 05:35] LABS: WHITE BLOOD COUNT 6.4 10^3/ul (4.8-10.8)
[2019-05-15 05:35] LABS: BASOPHIL # 0.1 10^3/ul (0.0-0.1); BASOPHILS % 1.2 % (0.0-2.0); EOSINOPHILS # 0.2 10^3/ul (0.0-0.5); EOSINOPHILS % 3.3 % (0.0-7.0); HEMATOCRIT 39.5 % (42.0-52.0); HEMOGLOBIN 12.8 g/dl (14.0-18.0); LYMPHOCYTES # 2.1 10^3/ul (0.8-2.9); LYMPHOCYTES % 32.5 % (15.0-51.0); MEAN CORPUSCULAR HEMOGLOBIN 28.4 pg (29.0-33.0); MEAN CORPUSCULAR HGB CONC 32.4 g/dl (32.0-37.0); MEAN CORPUSCULAR VOLUME 87.8 fl (82.0-101.0); MEAN PLATELET VOLUME 9.3 fl (7.4-10.4); MONOCYTE # 0.7 10^3/ul (0.3-0.9); MONOCYTES % 10.1 % (0.0-11.0); NEUTROPHIL # 3.3 10^3/ul (1.6-7.5); NEUTROPHILS % 51.8 % (39.0-77.0); PLATELET COUNT 207 10^3/UL (140-415); RED CELL DISTRIBUTION WIDTH 13.2 % (11.5-14.5)
[2019-05-15 06:17] LABS: ANION GAP 12 (5-13); BLOOD UREA NITROGEN 30 mg/dl (7-20); CALCIUM 9.4 mg/dl (8.4-10.2); CARBON DIOXIDE 20 mmol/L (21-31); CHLORIDE 108 mmol/L (97-110); Estimated GFR > 60 mL/min (>60); GLUCOSE 114 mg/dl (70-220); SODIUM 140 mmol/L (135-144)
[2019-05-15 06:48] LABS: POTASSIUM 4.1 mmol/L (3.5-5.1)
[2019-05-15] MEDS: TRIAMCINOLONE ACET 0.1% 15 GM CR TOP ×2 (07:55→21:00)
[2019-05-15] MEDS: FLUOCINONIDE 0.05% 15 GM CR TOP ×2 (07:56→21:00)
[2019-05-15] MEDS: INSULIN ASPART [NOVOLOG] 3 ML PEN SC ×4 (07:56→21:00)
[2019-05-15] MEDS: metFORMIN 500 MG TAB PO ×2 (07:56→17:31)
[2019-05-15] MEDS: DAKINS 0.0125%(1/40) 473 ML SOLUTION TP ×2 (07:56→21:00)
[2019-05-15] MEDS: DOXYCYCLINE 100 MG TAB PO ×2 (07:57→21:00)
[2019-05-15] MEDS: LORATADINE 10 MG TAB PO (07:57)
[2019-05-15] MEDS: HYDROCHLOROTHIAZIDE 12.5 MG CAP PO (07:57)
[2019-05-15] MEDS: RIVAROXABAN 20 MG TABLET PO (17:31)
[2019-05-16 05:43] LABS: ADD MAN DIFF? NO
[2019-05-16 05:44] LABS: WHITE BLOOD COUNT 6.5 10^3/ul (4.8-10.8)
[2019-05-16 05:44] LABS: BASOPHIL # 0.1 10^3/ul (0.0-0.1); BASOPHILS % 0.9 % (0.0-2.0); EOSINOPHILS # 0.2 10^3/ul (0.0-0.5); EOSINOPHILS % 3.1 % (0.0-7.0); HEMATOCRIT 39.9 % (42.0-52.0); HEMOGLOBIN 13.4 g/dl (14.0-18.0); LYMPHOCYTES % 30.3 % (15.0-51.0); MEAN CORPUSCULAR HEMOGLOBIN 28.8 pg (29.0-33.0); MEAN CORPUSCULAR HGB CONC 33.6 g/dl (32.0-37.0); MEAN CORPUSCULAR VOLUME 85.6 fl (82.0-101.0); MEAN PLATELET VOLUME 9.3 fl (7.4-10.4); MONOCYTE # 0.6 10^3/ul (0.3-0.9); NEUTROPHIL # 3.6 10^3/ul (1.6-7.5); NEUTROPHILS % 55.2 % (39.0-77.0); PLATELET COUNT 224 10^3/UL (140-415); RED BLOOD COUNT 4.66 10^6/ul (4.70-6.10); RED CELL DISTRIBUTION WIDTH 13.3 % (11.5-14.5)
[2019-05-16 06:14] LABS: ANION GAP 11 (5-13); BLOOD UREA NITROGEN 31 mg/dl (7-20); CALCIUM 9.5 mg/dl (8.4-10.2); CARBON DIOXIDE 23 mmol/L (21-31); CHLORIDE 107 mmol/L (97-110); CREATININE 1.12 mg/dl (0.61-1.24); Estimated GFR > 60 mL/min (>60); GLUCOSE 118 mg/dl (70-220); SODIUM 141 mmol/L (135-144)
[2019-05-16] MEDS: INSULIN ASPART [NOVOLOG] 3 ML PEN SC ×2 (08:00→12:00)
[2019-05-16] MEDS: metFORMIN 500 MG TAB PO (08:31)
[2019-05-16] MEDS: LORATADINE 10 MG TAB PO (08:31)
[2019-05-16] MEDS: DOXYCYCLINE 100 MG TAB PO (08:31)
[2019-05-16] MEDS: FLUOCINONIDE 0.05% 15 GM CR TOP (08:32)
[2019-05-16] MEDS: DAKINS 0.0125%(1/40) 473 ML SOLUTION TP (08:32)
[2019-05-16] MEDS: HYDROCHLOROTHIAZIDE 12.5 MG CAP PO (08:33)
[2019-05-16] MEDS: TRIAMCINOLONE ACET 0.1% 15 GM CR TOP (08:34)
== END 2019-05-16 14:25 | disposition home or self-care (01) | DRG 300 ==
LOC: 2NE 05-13 05:44 → E/R 06:38 → 2NE 09:58
DX: I83.218 Varicose veins of right lower extremity with both ulcer of other part of lower extremity and inflammation (principal); I82.431 Acute embolism and thrombosis of right popliteal vein; L97.819 Non-pressure chronic ulcer of other part of right lower leg with unspecified severity; I87.011 Postthrombotic syndrome with ulcer of right lower extremity; E11.9 Type 2 diabetes mellitus without complications; I10 Essential (primary) hypertension; L50.9 Urticaria, unspecified; L85.3 Xerosis cutis; E66.9 Obesity, unspecified; D63.8 Anemia in other chronic diseases classified elsewhere; Z68.36 Body mass index [BMI] 36.0-36.9, adult; Z59.0 Homelessness; Z79.02 Long term (current) use of antithrombotics/antiplatelets
CPT/HCPCS: 73030; 80048; 80053; 80061; 80202; 80307; 81001; 82306; 82652; 82728; 82962; 83036; 83540; 83735; 83880; 84100; 84484; 85025; 85610; 85651; 85730; 86140; 87040-91; 87070; 87081; 87086; 93005; 93922; 93970; 96365; 96366; 96367; 96375; 96376; 99285-25

== ENCOUNTER 2019-05-24 02:35 | Emergency (ER) | payer OTHER ==
[2019-05-24 03:43] LABS: ADD MAN DIFF? NO
[2019-05-24 04:08] LABS: ALANINE AMINOTRANSFERASE 26 IU/L (13-69); ALBUMIN 4.4 g/dl (3.3-4.9); ALBUMIN/GLOBULIN RATIO 1.25; ALKALINE PHOSPHATASE 76 IU/L (42-121); ANION GAP 11 (5-13); ASPARTATE AMINO TRANSFERASE 27 IU/L (15-46); BILIRUBIN,INDIRECT 0.4 mg/dl (0-1.1); BILIRUBIN,TOTAL 0.4 mg/dl (0.2-1.3); BLOOD UREA NITROGEN 22 mg/dl (7-20); CARBON DIOXIDE 28 mmol/L (21-31); CHLORIDE 106 mmol/L (97-110); CREATININE 1.19 mg/dl (0.61-1.24); Estimated GFR > 60 mL/min (>60); GLUCOSE 132 mg/dl (70-220); LIPASE 767 U/L (23-300); SODIUM 145 mmol/L (135-144); TOTAL PROTEIN 7.9 g/dl (6.1-8.1)
[2019-05-24 04:19] LABS: BASOPHIL # 0.1 10^3/ul (0.0-0.1); BASOPHILS % 1.3 % (0.0-2.0); EOSINOPHILS # 0.3 10^3/ul (0.0-0.5); EOSINOPHILS % 4.3 % (0.0-7.0); LYMPHOCYTES # 1.4 10^3/ul (0.8-2.9); LYMPHOCYTES % 23.6 % (15.0-51.0); MEAN CORPUSCULAR HEMOGLOBIN 27.9 pg (29.0-33.0); MEAN CORPUSCULAR HGB CONC 32.6 g/dl (32.0-37.0); MEAN CORPUSCULAR VOLUME 85.7 fl (82.0-101.0); MEAN PLATELET VOLUME 9.7 fl (7.4-10.4); MONOCYTE # 0.9 10^3/ul (0.3-0.9); NEUTROPHIL # 3.3 10^3/ul (1.6-7.5); NEUTROPHILS % 54.2 % (39.0-77.0); PLATELET COUNT 196 10^3/UL (140-415); RED BLOOD COUNT 5.02 10^6/ul (4.70-6.10); RED CELL DISTRIBUTION WIDTH 13.2 % (11.5-14.5)
[2019-05-24 04:19] LABS: WHITE BLOOD COUNT 6.1 10^3/ul (4.8-10.8)
[2019-05-24 04:20] LABS: B-TYPE NATRIURETIC PEPTIDE 48 PG/ML (0-125); TROPONIN-I < 0.012 ng/ml (0.000-0.120)
[2019-05-24] MEDS: SOD CHLORIDE 0.9% 100 ML (04:34)
[2019-05-24] MEDS: IOHEXOL 100 ML (04:34)
[2019-05-24] MEDS: ALBUTEROL 0.5% (NEB) 2.5 MG/0.5 ML AMP INH (04:37)
[2019-05-24 05:58] LABS: INR 0.98; PROTIME 13.1 Sec (11.9-14.9)
[2019-05-24 05:59] LABS: PARTIAL THROMBOPLASTIN TIME 28.3 Sec (23.0-35.0)
== END 2019-05-24 09:35 | disposition home or self-care (01) ==
LOC: E/R 02:35
DX: J40 Bronchitis, not specified as acute or chronic (principal); I10 Essential (primary) hypertension; E11.9 Type 2 diabetes mellitus without complications; E86.0 Dehydration; Z79.82 Long term (current) use of aspirin
CPT/HCPCS: 36415; 71045; 71275; 80053; 83690; 83880; 84484; 85025; 85610; 85730; 93005; 94644; 99285-25

== ENCOUNTER 2019-06-12 15:17 | Inpatient (IN) | payer OTHER ==
[2019-06-12 16:44] LABS: ADD MAN DIFF? NO
[2019-06-12 16:46] LABS: BASOPHIL # 0.1 10^3/ul (0.0-0.1); BASOPHILS % 0.9 % (0.0-2.0); EOSINOPHILS # 0.2 10^3/ul (0.0-0.5); EOSINOPHILS % 2.3 % (0.0-7.0); HEMOGLOBIN 12.3 g/dl (14.0-18.0); LYMPHOCYTES # 1.3 10^3/ul (0.8-2.9); LYMPHOCYTES % 16.7 % (15.0-51.0); MEAN CORPUSCULAR HGB CONC 32.4 g/dl (32.0-37.0); MEAN CORPUSCULAR VOLUME 86.6 fl (82.0-101.0); MEAN PLATELET VOLUME 9.6 fl (7.4-10.4); MONOCYTE # 0.6 10^3/ul (0.3-0.9); MONOCYTES % 8.1 % (0.0-11.0); NEUTROPHIL # 5.5 10^3/ul (1.6-7.5); NEUTROPHILS % 71.4 % (39.0-77.0); PLATELET COUNT 200 10^3/UL (140-415); RED BLOOD COUNT 4.39 10^6/ul (4.70-6.10); RED CELL DISTRIBUTION WIDTH 13.3 % (11.5-14.5)
[2019-06-12 16:46] LABS: WHITE BLOOD COUNT 7.8 10^3/ul (4.8-10.8)
[2019-06-12] MEDS: ONDANSETRON 4 MG INJ IV (16:53)
[2019-06-12] MEDS: morphine 4 MG/ML VIAL IV (16:54)
[2019-06-12 17:06] LABS: INR 1.06; PROTIME 13.9 Sec (11.9-14.9); PT RATIO 1.1
[2019-06-12 17:07] LABS: ALANINE AMINOTRANSFERASE 21 IU/L (13-69); ALBUMIN 4.1 g/dl (3.3-4.9); ALKALINE PHOSPHATASE 63 IU/L (42-121); ANION GAP 11 (5-13); ASPARTATE AMINO TRANSFERASE 27 IU/L (15-46); BILIRUBIN,INDIRECT 0.4 mg/dl (0-1.1); BILIRUBIN,TOTAL 0.4 mg/dl (0.2-1.3); BLOOD UREA NITROGEN 15 mg/dl (7-20); CALCIUM 9.3 mg/dl (8.4-10.2); CARBON DIOXIDE 24 mmol/L (21-31); CHLORIDE 108 mmol/L (97-110); CREATININE 1.09 mg/dl (0.61-1.24); Estimated GFR > 60 mL/min (>60); GLUCOSE 134 mg/dl (70-220); PARTIAL THROMBOPLASTIN TIME 28.2 Sec (23.0-35.0); POTASSIUM 4.3 mmol/L (3.5-5.1); SODIUM 143 mmol/L (135-144); TOTAL PROTEIN 7.5 g/dl (6.1-8.1)
[2019-06-12 17:17] LABS: TROPONIN-I < 0.012 ng/ml (0.000-0.120)
[2019-06-12] MEDS ORDERED: NITROGLYCERIN (SL) 0.4 MG TAB SL (19:00)
[2019-06-12] MEDS ORDERED: LORAZEPAM 2 MG INJ IV (19:00)
[2019-06-12] MEDS ORDERED: NACL 0.9% 3 ML SYG IV (19:00)
[2019-06-12] MEDS ORDERED: MAGNESIUM HYDROXIDE 30ML CUP PO (19:00)
[2019-06-12] MEDS ORDERED: ALBUTEROL/IPRATROPIUM (NEB) 3 ML AMP HHN (19:00)
[2019-06-12] MEDS ORDERED: ONDANSETRON 4 MG INJ IV ×2 (19:00→19:30)
[2019-06-12] MEDS ORDERED: hydrALAzine 20 MG INJ IV (19:00)
[2019-06-12] MEDS ORDERED: DOCUSATE SODIUM 100 MG CAP PO (19:00)
[2019-06-12] MEDS ORDERED: ACETAMINOPHEN 325 MG TAB PO (19:30)
[2019-06-12] MEDS: morphine 2 MG INJ IV ×2 (19:45→23:51)
[2019-06-12] MEDS: SOD CHLORIDE 0.45% 1,000 ML IV (19:56)
[2019-06-12 20:24] LABS: FREE T4 (FREE THYROXINE) 0.95 ng/dl (0.78-2.44)
[2019-06-13] MEDS: PANTOPRAZOLE (EC) 40 MG TAB PO (05:31)
[2019-06-13 06:03] LABS: ADD MAN DIFF? NO
[2019-06-13 06:07] LABS: BASOPHIL # 0.1 10^3/ul (0.0-0.1); BASOPHILS % 0.8 % (0.0-2.0); EOSINOPHILS # 0.2 10^3/ul (0.0-0.5); EOSINOPHILS % 3.7 % (0.0-7.0); HEMATOCRIT 36.1 % (42.0-52.0); HEMOGLOBIN 11.5 g/dl (14.0-18.0); LYMPHOCYTES # 1.6 10^3/ul (0.8-2.9); LYMPHOCYTES % 27.5 % (15.0-51.0); MEAN CORPUSCULAR HEMOGLOBIN 28.5 pg (29.0-33.0); MEAN CORPUSCULAR HGB CONC 31.9 g/dl (32.0-37.0); MEAN CORPUSCULAR VOLUME 89.4 fl (82.0-101.0); MEAN PLATELET VOLUME 10.1 fl (7.4-10.4); MONOCYTE # 0.6 10^3/ul (0.3-0.9); MONOCYTES % 10.4 % (0.0-11.0); NEUTROPHIL # 3.4 10^3/ul (1.6-7.5); NEUTROPHILS % 57.1 % (39.0-77.0); PLATELET COUNT 166 10^3/UL (140-415); RED BLOOD COUNT 4.04 10^6/ul (4.70-6.10); RED CELL DISTRIBUTION WIDTH 13.4 % (11.5-14.5)
[2019-06-13 06:07] LABS: WHITE BLOOD COUNT 5.9 10^3/ul (4.8-10.8)
[2019-06-13 07:10] LABS: CHOLESTEROL 177 mg/dl (100-200)
[2019-06-13 07:10] LABS: CHOL/HDL RATIO 6.3 RATIO; HDL CHOLESTEROL 28 mg/dl (30-78); LDL CHOLESTEROL,CALCULATED 95 mg/dl; TRIGLYCERIDES 272 mg/dl (0-149)
[2019-06-13 07:19] LABS: ANION GAP 6 (5-13); BLOOD UREA NITROGEN 15 mg/dl (7-20); CALCIUM 8.7 mg/dl (8.4-10.2); CARBON DIOXIDE 29 mmol/L (21-31); CHLORIDE 109 mmol/L (97-110); CREATININE 1.08 mg/dl (0.61-1.24); Estimated GFR > 60 mL/min (>60); GLUCOSE 110 mg/dl (70-220); MAGNESIUM 1.8 mg/dl (1.7-2.5); PHOSPHORUS 4.1 mg/dl (2.5-4.9); SODIUM 144 mmol/L (135-144)
[2019-06-13] MEDS: HYDROCHLOROTHIAZIDE 12.5 MG CAP PO (09:00)
[2019-06-13] MEDS: SOD CHLORIDE 0.45% 1,000 ML IV ×2 (09:08→21:19)
[2019-06-13 09:46] LABS: HEMOGLOBIN A1C 6.2 % (0-5.9)
[2019-06-13] MEDS: CEFTRIAXONE 1 GM/50 ML (PMX) 50 ML IVPB (11:28)
[2019-06-13] MEDS: morphine 2 MG INJ IV ×2 (18:03→22:13)
[2019-06-13] MEDS: RIVAROXABAN 20 MG TABLET PO (18:25)
[2019-06-13] MEDS ORDERED: GLUCOSE GEL 15 GRAM TUBE PO ×2 (20:00)
[2019-06-13] MEDS ORDERED: DEXTROSE 50% 50 ML SYRINGE IV ×2 (20:00)
[2019-06-13] MEDS ORDERED: GLUCOSE GEL 15 GRAM TUBE BUCCAL (20:00)
[2019-06-13] MEDS ORDERED: GLUCAGON 1 MG INJ IM (20:00)
[2019-06-13] MEDS: INSULIN ASPART [NOVOLOG] 3 ML PEN SC (21:00)
[2019-06-13] MEDS: ATORVASTATIN 20 MG TAB PO (21:18)
[2019-06-14] MEDS: SOD CHLORIDE 0.45% 1,000 ML IV ×3 (00:26→20:13)
[2019-06-14] MEDS: PANTOPRAZOLE (EC) 40 MG TAB PO (05:39)
[2019-06-14 08:12] LABS: ADD MAN DIFF? NO
[2019-06-14 08:19] LABS: WHITE BLOOD COUNT 5.2 10^3/ul (4.8-10.8)
[2019-06-14 08:19] LABS: BASOPHILS % 0.8 % (0.0-2.0); EOSINOPHILS # 0.2 10^3/ul (0.0-0.5); EOSINOPHILS % 3.4 % (0.0-7.0); HEMATOCRIT 37.6 % (42.0-52.0); HEMOGLOBIN 12.1 g/dl (14.0-18.0); LYMPHOCYTES # 1.5 10^3/ul (0.8-2.9); LYMPHOCYTES % 27.8 % (15.0-51.0); MEAN CORPUSCULAR HEMOGLOBIN 28.2 pg (29.0-33.0); MEAN CORPUSCULAR HGB CONC 32.2 g/dl (32.0-37.0); MEAN CORPUSCULAR VOLUME 87.6 fl (82.0-101.0); MEAN PLATELET VOLUME 9.4 fl (7.4-10.4); MONOCYTE # 0.6 10^3/ul (0.3-0.9); MONOCYTES % 10.5 % (0.0-11.0); NEUTROPHILS % 57.1 % (39.0-77.0); PLATELET COUNT 156 10^3/UL (140-415); RED BLOOD COUNT 4.29 10^6/ul (4.70-6.10); RED CELL DISTRIBUTION WIDTH 13.4 % (11.5-14.5)
[2019-06-14 08:40] LABS: ANION GAP 7 (5-13); BLOOD UREA NITROGEN 18 mg/dl (7-20); CALCIUM 8.9 mg/dl (8.4-10.2); CARBON DIOXIDE 28 mmol/L (21-31); CHLORIDE 109 mmol/L (97-110); CREATININE 1.15 mg/dl (0.61-1.24); Estimated GFR > 60 mL/min (>60); GLUCOSE 131 mg/dl (70-220); POTASSIUM 3.9 mmol/L (3.5-5.1); SODIUM 144 mmol/L (135-144)
[2019-06-14] MEDS: HYDROCHLOROTHIAZIDE 12.5 MG CAP PO (09:00)
[2019-06-14] MEDS: INSULIN ASPART [NOVOLOG] 3 ML PEN SC ×4 (09:04→20:13)
[2019-06-14] MEDS: CEFTRIAXONE 1 GM/50 ML (PMX) 50 ML IVPB (10:20)
[2019-06-14] MEDS: morphine 2 MG INJ IV ×2 (10:23→21:35)
[2019-06-14] MEDS: RIVAROXABAN 20 MG TABLET PO (17:12)
[2019-06-14 19:14] LABS: ADD UMIC YES; UR ASCORBIC ACID NEGATIVE (NEGATIVE); UR BACTERIA FEW /HPF (NONE SEEN); UR BILIRUBIN (Dip) NEGATIVE (NEGATIVE); UR BLOOD (Dip) 3+ mg/dL (NEGATIVE); UR CLARITY CLOUDY (CLEAR); UR COLOR RED (YELLOW); UR GLUCOSE (Dip) NEGATIVE (NEGATIVE); UR KETONES (Dip) NEGATIVE (NEGATIVE); UR LEUKOCYTE ESTERASE (Dip) NEGATIVE Leu/ul (NEGATIVE); UR NITRITE (Dip) NEGATIVE (NEGATIVE); UR RBC > 182 /HPF (0-5); UR SPECIFIC GRAVITY (Dip) 1.008 (1.003-1.030); UR TOTAL PROTEIN (Dip) 2+ mg/dl (NEGATIVE); UR UROBILINOGEN (Dip) NEGATIVE (NEGATIVE); UR WBC 154 /HPF (0-5)
[2019-06-14] MEDS: ATORVASTATIN 20 MG TAB PO (20:12)
[2019-06-15] MEDS: PANTOPRAZOLE (EC) 40 MG TAB PO (05:36)
[2019-06-15] MEDS: INSULIN ASPART [NOVOLOG] 3 ML PEN SC ×4 (08:00→20:38)
[2019-06-15] MEDS: HYDROCHLOROTHIAZIDE 12.5 MG CAP PO (08:24)
[2019-06-15] MEDS: CEFTRIAXONE 1 GM/50 ML (PMX) 50 ML IVPB (09:56)
[2019-06-15] MEDS: morphine 2 MG INJ IV ×2 (09:57→19:39)
[2019-06-15] MEDS: SOD CHLORIDE 0.45% 1,000 ML IV (10:05)
[2019-06-15 15:09] LABS: ADD MAN DIFF? NO
[2019-06-15 15:11] LABS: BASOPHIL # 0.1 10^3/ul (0.0-0.1); BASOPHILS % 0.8 % (0.0-2.0); EOSINOPHILS # 0.2 10^3/ul (0.0-0.5); EOSINOPHILS % 3.3 % (0.0-7.0); HEMATOCRIT 36.9 % (42.0-52.0); HEMOGLOBIN 12.1 g/dl (14.0-18.0); LYMPHOCYTES # 1.6 10^3/ul (0.8-2.9); MEAN CORPUSCULAR HEMOGLOBIN 28.4 pg (29.0-33.0); MEAN CORPUSCULAR HGB CONC 32.8 g/dl (32.0-37.0); MEAN CORPUSCULAR VOLUME 86.6 fl (82.0-101.0); MEAN PLATELET VOLUME 9.5 fl (7.4-10.4); MONOCYTE # 0.6 10^3/ul (0.3-0.9); MONOCYTES % 9.6 % (0.0-11.0); NEUTROPHILS % 61.5 % (39.0-77.0); PLATELET COUNT 182 10^3/UL (140-415); RED BLOOD COUNT 4.26 10^6/ul (4.70-6.10); RED CELL DISTRIBUTION WIDTH 13.2 % (11.5-14.5)
[2019-06-15 15:11] LABS: WHITE BLOOD COUNT 6.5 10^3/ul (4.8-10.8)
[2019-06-15 15:30] LABS: ANION GAP 10 (5-13); BLOOD UREA NITROGEN 15 mg/dl (7-20); CALCIUM 9.1 mg/dl (8.4-10.2); CARBON DIOXIDE 26 mmol/L (21-31); CHLORIDE 105 mmol/L (97-110); CREATININE 1.16 mg/dl (0.61-1.24); Estimated GFR > 60 mL/min (>60); GLUCOSE 147 mg/dl (70-220); POTASSIUM 3.8 mmol/L (3.5-5.1); SODIUM 141 mmol/L (135-144)
[2019-06-15] MEDS: RIVAROXABAN 20 MG TABLET PO (17:10)
[2019-06-15] MEDS: ATORVASTATIN 20 MG TAB PO (20:38)
[2019-06-16] MEDS: PANTOPRAZOLE (EC) 40 MG TAB PO (06:01)
[2019-06-16] MEDS: INSULIN ASPART [NOVOLOG] 3 ML PEN SC ×4 (08:00→21:00)
[2019-06-16] MEDS: HYDROCHLOROTHIAZIDE 12.5 MG CAP PO (08:15)
[2019-06-16 10:42] LABS: ADD MAN DIFF? NO
[2019-06-16 10:45] LABS: BASOPHIL # 0.1 10^3/ul (0.0-0.1); BASOPHILS % 0.9 % (0.0-2.0); EOSINOPHILS # 0.2 10^3/ul (0.0-0.5); EOSINOPHILS % 3.9 % (0.0-7.0); HEMATOCRIT 38.9 % (42.0-52.0); HEMOGLOBIN 12.9 g/dl (14.0-18.0); LYMPHOCYTES # 1.5 10^3/ul (0.8-2.9); LYMPHOCYTES % 26.4 % (15.0-51.0); MEAN CORPUSCULAR HEMOGLOBIN 28.2 pg (29.0-33.0); MEAN CORPUSCULAR HGB CONC 33.2 g/dl (32.0-37.0); MEAN CORPUSCULAR VOLUME 85.1 fl (82.0-101.0); MEAN PLATELET VOLUME 9.4 fl (7.4-10.4); MONOCYTE # 0.6 10^3/ul (0.3-0.9); NEUTROPHIL # 3.2 10^3/ul (1.6-7.5); NEUTROPHILS % 57.7 % (39.0-77.0); PLATELET COUNT 182 10^3/UL (140-415); RED BLOOD COUNT 4.57 10^6/ul (4.70-6.10); RED CELL DISTRIBUTION WIDTH 13.3 % (11.5-14.5)
[2019-06-16 10:45] LABS: WHITE BLOOD COUNT 5.6 10^3/ul (4.8-10.8)
[2019-06-16] MEDS: CEFTRIAXONE 1 GM/50 ML (PMX) 50 ML IVPB (11:01)
[2019-06-16 11:08] LABS: ANION GAP 9 (5-13); BLOOD UREA NITROGEN 15 mg/dl (7-20); CALCIUM 9.1 mg/dl (8.4-10.2); CARBON DIOXIDE 28 mmol/L (21-31); CHLORIDE 106 mmol/L (97-110); CREATININE 1.25 mg/dl (0.61-1.24); Estimated GFR 58 mL/min (>60); GLUCOSE 158 mg/dl (70-220); POTASSIUM 3.6 mmol/L (3.5-5.1); SODIUM 143 mmol/L (135-144)
[2019-06-16] MEDS: RIVAROXABAN 20 MG TABLET PO (17:00)
[2019-06-16] MEDS: ATORVASTATIN 20 MG TAB PO (21:47)
[2019-06-17] MEDS: PANTOPRAZOLE (EC) 40 MG TAB PO (06:14)
[2019-06-17] MEDS: INSULIN ASPART [NOVOLOG] 3 ML PEN SC ×4 (08:00→21:00)
[2019-06-17] MEDS: HYDROCHLOROTHIAZIDE 12.5 MG CAP PO (09:23)
[2019-06-17] MEDS: CEFTRIAXONE 1 GM/50 ML (PMX) 50 ML IVPB (09:53)
[2019-06-17 15:28] LABS: ADD MAN DIFF? NO
[2019-06-17 15:30] LABS: BASOPHIL # 0.1 10^3/ul (0.0-0.1); BASOPHILS % 0.8 % (0.0-2.0); EOSINOPHILS # 0.3 10^3/ul (0.0-0.5); EOSINOPHILS % 4.4 % (0.0-7.0); HEMATOCRIT 41.8 % (42.0-52.0); HEMOGLOBIN 13.8 g/dl (14.0-18.0); LYMPHOCYTES % 30.3 % (15.0-51.0); MEAN CORPUSCULAR VOLUME 84.8 fl (82.0-101.0); MEAN PLATELET VOLUME 9.8 fl (7.4-10.4); MONOCYTE # 0.6 10^3/ul (0.3-0.9); MONOCYTES % 9.1 % (0.0-11.0); NEUTROPHIL # 3.6 10^3/ul (1.6-7.5); NEUTROPHILS % 54.8 % (39.0-77.0); PLATELET COUNT 214 10^3/UL (140-415); RED BLOOD COUNT 4.93 10^6/ul (4.70-6.10); RED CELL DISTRIBUTION WIDTH 13.4 % (11.5-14.5)
[2019-06-17 15:30] LABS: WHITE BLOOD COUNT 6.6 10^3/ul (4.8-10.8)
[2019-06-17 15:59] LABS: ANION GAP 12 (5-13); BLOOD UREA NITROGEN 22 mg/dl (7-20); CALCIUM 9.5 mg/dl (8.4-10.2); CARBON DIOXIDE 25 mmol/L (21-31); CHLORIDE 104 mmol/L (97-110); CREATININE 1.39 mg/dl (0.61-1.24); Estimated GFR 51 mL/min (>60); GLUCOSE 136 mg/dl (70-220); POTASSIUM 3.8 mmol/L (3.5-5.1); SODIUM 141 mmol/L (135-144)
[2019-06-17] MEDS: RIVAROXABAN 20 MG TABLET PO (17:12)
[2019-06-17] MEDS: ATORVASTATIN 20 MG TAB PO (20:17)
[2019-06-18] MEDS: PANTOPRAZOLE (EC) 40 MG TAB PO (06:17)
[2019-06-18] MEDS: INSULIN ASPART [NOVOLOG] 3 ML PEN SC ×4 (08:00→20:46)
[2019-06-18] MEDS: ACETAMINOPHEN 325 MG TAB PO (08:56)
[2019-06-18] MEDS: HYDROCHLOROTHIAZIDE 12.5 MG CAP PO (08:57)
[2019-06-18] MEDS: CEFTRIAXONE 1 GM/50 ML (PMX) 50 ML IVPB (10:44)
[2019-06-18 12:47] LABS: ADD MAN DIFF? NO
[2019-06-18 12:50] LABS: BASOPHIL # 0.1 10^3/ul (0.0-0.1); BASOPHILS % 0.6 % (0.0-2.0); EOSINOPHILS # 0.3 10^3/ul (0.0-0.5); EOSINOPHILS % 3.4 % (0.0-7.0); HEMATOCRIT 43.2 % (42.0-52.0); HEMOGLOBIN 14.3 g/dl (14.0-18.0); LYMPHOCYTES % 21.3 % (15.0-51.0); MEAN CORPUSCULAR HEMOGLOBIN 28.3 pg (29.0-33.0); MEAN CORPUSCULAR HGB CONC 33.1 g/dl (32.0-37.0); MEAN CORPUSCULAR VOLUME 85.5 fl (82.0-101.0); MEAN PLATELET VOLUME 9.5 fl (7.4-10.4); MONOCYTE # 0.7 10^3/ul (0.3-0.9); MONOCYTES % 7.8 % (0.0-11.0); NEUTROPHIL # 6.2 10^3/ul (1.6-7.5); PLATELET COUNT 207 10^3/UL (140-415); RED BLOOD COUNT 5.05 10^6/ul (4.70-6.10); RED CELL DISTRIBUTION WIDTH 13.4 % (11.5-14.5)
[2019-06-18 12:50] LABS: WHITE BLOOD COUNT 9.4 10^3/ul (4.8-10.8)
[2019-06-18 13:09] LABS: ANION GAP 11 (5-13); BLOOD UREA NITROGEN 24 mg/dl (7-20); CALCIUM 9.9 mg/dl (8.4-10.2); CARBON DIOXIDE 27 mmol/L (21-31); CHLORIDE 103 mmol/L (97-110); CREATININE 1.14 mg/dl (0.61-1.24); Estimated GFR > 60 mL/min (>60); GLUCOSE 181 mg/dl (70-220); SODIUM 141 mmol/L (135-144)
[2019-06-18] MEDS: RIVAROXABAN 20 MG TABLET PO (17:12)
[2019-06-18] MEDS: ATORVASTATIN 20 MG TAB PO (20:46)
[2019-06-19] MEDS: PANTOPRAZOLE (EC) 40 MG TAB PO (05:41)
[2019-06-19] MEDS: HYDROCODONE/APAP (5/325) TAB PO (05:47)
[2019-06-19] MEDS: INSULIN ASPART [NOVOLOG] 3 ML PEN SC ×3 (08:00→17:18)
[2019-06-19] MEDS: HYDROCHLOROTHIAZIDE 12.5 MG CAP PO (08:24)
[2019-06-19] MEDS: morphine 10 MG INJ IM (08:27)
[2019-06-19 09:35] LABS: ADD MAN DIFF? NO
[2019-06-19 09:37] LABS: WHITE BLOOD COUNT 10.2 10^3/ul (4.8-10.8)
[2019-06-19 09:37] LABS: BASOPHIL # 0.1 10^3/ul (0.0-0.1); BASOPHILS % 0.7 % (0.0-2.0); EOSINOPHILS # 0.3 10^3/ul (0.0-0.5); EOSINOPHILS % 3.1 % (0.0-7.0); HEMATOCRIT 44.8 % (42.0-52.0); HEMOGLOBIN 14.4 g/dl (14.0-18.0); LYMPHOCYTES # 2.5 10^3/ul (0.8-2.9); LYMPHOCYTES % 24.5 % (15.0-51.0); MEAN CORPUSCULAR HEMOGLOBIN 27.9 pg (29.0-33.0); MEAN CORPUSCULAR HGB CONC 32.1 g/dl (32.0-37.0); MEAN CORPUSCULAR VOLUME 86.8 fl (82.0-101.0); MEAN PLATELET VOLUME 9.6 fl (7.4-10.4); MONOCYTE # 0.9 10^3/ul (0.3-0.9); MONOCYTES % 9.1 % (0.0-11.0); NEUTROPHIL # 6.3 10^3/ul (1.6-7.5); NEUTROPHILS % 61.7 % (39.0-77.0); PLATELET COUNT 196 10^3/UL (140-415); RED BLOOD COUNT 5.16 10^6/ul (4.70-6.10); RED CELL DISTRIBUTION WIDTH 13.5 % (11.5-14.5)
[2019-06-19 09:57] LABS: ANION GAP 11 (5-13); BLOOD UREA NITROGEN 29 mg/dl (7-20); CALCIUM 9.6 mg/dl (8.4-10.2); CARBON DIOXIDE 28 mmol/L (21-31); CHLORIDE 102 mmol/L (97-110); CREATININE 1.38 mg/dl (0.61-1.24); Estimated GFR 52 mL/min (>60); GLUCOSE 145 mg/dl (70-220); POTASSIUM 4.1 mmol/L (3.5-5.1); SODIUM 141 mmol/L (135-144)
[2019-06-19] MEDS: NAPROXEN 500 MG TAB PO (13:38)
[2019-06-19] MEDS: RIVAROXABAN 20 MG TABLET PO (17:18)
== END 2019-06-19 18:00 | disposition home or self-care (01) | DRG 300 ==
LOC: E/R 15:17 → PP2 19:06 → 5EC 21:11
DX: I82.511 Chronic embolism and thrombosis of right femoral vein (principal); L03.115 Cellulitis of right lower limb; I83.228 Varicose veins of left lower extremity with both ulcer of other part of lower extremity and inflammation; L97.829 Non-pressure chronic ulcer of other part of left lower leg with unspecified severity; I82.531 Chronic embolism and thrombosis of right popliteal vein; E11.42 Type 2 diabetes mellitus with diabetic polyneuropathy; I10 Essential (primary) hypertension; Z79.02 Long term (current) use of antithrombotics/antiplatelets; L50.8 Other urticaria; E66.9 Obesity, unspecified; Z68.33 Body mass index [BMI] 33.0-33.9, adult; Z59.0 Homelessness; D64.9 Anemia, unspecified; N20.0 Calculus of kidney
CPT/HCPCS: 80048; 80053; 80061; 81001; 82355; 82962; 83036; 83735; 84100; 84439; 84443; 84484; 85025; 85610; 85730; 93971; 96374; 96375; 97161; 97166; 99285-25

== ENCOUNTER 2019-07-20 11:02 | Emergency (ER) | payer OTHER ==
[2019-07-20 12:59] LABS: URINE BLOOD (Dip) POC 3+ (NEGATIVE); URINE GLUCOSE (Dip) POC Negative (NEGATIVE); URINE KETONES (Dip) POC Negative (NEGATIVE); URINE LEUKOCYTE EST (Dip) POC Negative (NEGATIVE); URINE NITRITE (Dip) POC Negative (NEGATIVE); URINE TOTAL PROTEIN POC 2+ (NEGATIVE)
[2019-07-20] MEDS: ONDANSETRON (ODT) 4 MG TAB ODT (13:24)
[2019-07-20] MEDS: HYDROCODONE/APAP (10/325) TAB PO (13:24)
== END 2019-07-20 16:48 | disposition home or self-care (01) ==
LOC: E/R 11:02
DX: N20.0 Calculus of kidney (principal); M79.89 Other specified soft tissue disorders; I10 Essential (primary) hypertension; E11.9 Type 2 diabetes mellitus without complications; Z79.02 Long term (current) use of antithrombotics/antiplatelets; Z79.84 Long term (current) use of oral hypoglycemic drugs
CPT/HCPCS: 81003; 99283